=== PATIENT | male | born 1960 | race Native Hawaiian/Other Pacific Islander ===

== ENCOUNTER 2021-04-16 17:23 | Emergency (ER) | payer OTHER ==
[~2021-04-16] VITALS: Ht 182.9 cm; Wt 70.3 kg
[2021-04-16 17:50] LABS: PLATELET COUNT 116 K/uL (142-355)
[2021-04-16 18:00] LABS: POTASSIUM 3.5 mmol/L (3.6-5.2)
[2021-04-16] MEDS ORDERED: LAMOTRIGINE100 MG PO (19:26)
[2021-04-16] MEDS ORDERED: GRALISE600 MG PO (19:26)
[2021-04-16] MEDS ORDERED: OMEPRAZOLE40 MG PO (19:27)
[2021-04-16] MEDS ORDERED: POT CHLORIDE10 ME1 PO (19:28)
[2021-04-16] MEDS ORDERED: QUETIAPINE100 MG PO (19:30)
[2021-04-16 23:40] VITALS: BP 141/90; TEMP 98.2
[2021-04-17] MEDS ORDERED: QUETIAPINE50 MG PO (08:07)
[2021-04-17] MEDS ORDERED: SERTRALINE HYD100 MG PO (08:08)
[2021-04-17] MEDS ORDERED: FAMOTIDINE40 MG PO (08:09)
[2021-04-17] MEDS ORDERED: LACO200T PO (08:09)
[2021-04-17] MEDS ORDERED: FENT25DI TD (08:10)
[2021-04-17] MEDS ORDERED: LORA1TAB17 PO (08:12)
[2021-04-17] MEDS ORDERED: SENEXON-S1 TAB PO ×2 (08:13→08:16)
[2021-04-17] MEDS ORDERED: OXYCODONE30 MG PO (08:15)
[2021-04-17] MEDS ORDERED: TYLENOL325 MG PO (08:15)
[2021-04-17] MEDS ORDERED: BISA10SU8 RE (08:17)
== END 2021-04-16 23:40 | disposition still patient (30) ==
LOC: ED 17:23
PROVIDERS: Emergency Medicine Emergency Medical Services
DX: R46.89 Other symptoms and signs involving appearance and behavior (principal); S32.018A Other fracture of first lumbar vertebra, initial encounter for closed fracture; S32.028A Other fracture of second lumbar vertebra, initial encounter for closed fracture; S32.038A Other fracture of third lumbar vertebra, initial encounter for closed fracture; S32.048A Other fracture of fourth lumbar vertebra, initial encounter for closed fracture; Z11.52 Encounter for screening for COVID-19; Z04.6 Encounter for general psychiatric examination, requested by authority; W01.198A Fall on same level from slipping, tripping and stumbling with subsequent striking against other object, initial encounter; Y92.89 Other specified places as the place of occurrence of the external cause
CPT/HCPCS: 80053; 85027; 87635; 93005; 99283; U0003